=== PATIENT | female | born 1945 | race Caucasian/White ===

== ENCOUNTER → 2016-07-26 | Outpatient (CLI) | payer MEDICARE ==
[~2016-07-26] MED LIST: AMOXICILLIN500 MG PO; ANTIVERT/2525 M1 PO; ASPIRIN81 M1 PO; AUGMENTIN 875 M1 TAB PO; AUGMENTIN 875875 MG PO; BUSPAR10 MG PO; CALCIUM 600600 M2 PO; CELEBREX200 MG PO; CEREFOLIN PO; CLINDAMYCIN150 MG PO; CYCLOBENZAPRINE10 MG PO; DEMADEX5 MG PO; DIFLUCAN150 MG PO; DIOVAN80 M1 PO; DOK COLACE100 MG PO; FOSAMAX70 MG PO; HYDROCODONE BIT1 T11 PO; LASIX20 MG PO; LIDODERM 5% PATC1 EA T; MECLIZINE HCL25 M2 PO; MOTRIN800 MG PO; MULTIVITAMIN1 CTB PO; NEURONTIN100 MG PO; NEURONTIN300 MG PO; PERCOCET 325 MG1 TA2 PO; PERCOCET 325 MG1 TA3 PO; POTASSIUM CHLO10 ME5 PO; PROAIR HFA0.09 MG/AC; PROTONIX40 MG PO; SYNTHROID,LEVO50 MCG PO; ULTRAM50 MG PO; VIBRAMYCIN100 MG PO; ZANAFLEX4 MG PO; ZETIA10 MG PO
[2016-07-26 11:47] LABS: BASO # 0.1 10*3/uL (0.0-0.1); BASO % 0.6 % (0.0-1.0); EOS # 0.2 10*3/uL (0.0-0.4); EOS % 2.4 % (1.0-4.0); HEMATOCRIT 37.5 % (37.0-47.0); HEMOGLOBIN 11.9 g/dl (12.0-16.0); IG # 0.1 10*3/uL (0.0-0.1); LYMPH # 2.1 10*3/uL (1.3-4.4); LYMPH % 20.5 % (27.0-41.0); MEAN CELL VOLUME 88.9 fl (81.0-99.0); MEAN CORPUSCULAR HGB 28.2 pg (27.0-31.0); MEAN CORPUSCULAR HGB CONC 31.7 g/dl (33.0-37.0); MEAN PLATELET VOLUME 9.4 fl (9.6-12.3); MONO # 0.8 10*3/uL (0.1-1.0); NEUT # 6.8 10*3/uL (2.3-7.9); NEUT % 67.2 % (47.0-73.0); PLATELET COUNT AUTOMATED 343 10*3/uL (130-400); RED BLOOD COUNT 4.22 10*6/uL (4.10-5.10); RED CELL DISTRI WIDTH 15.4 % (0-14.5); WHITE BLOOD COUNT 10.1 10*3/uL (4.8-10.8)
[2016-07-26 12:03] LABS: HEMOGLOBIN A1c 6.7 % (4.8-5.6)
[2016-07-26 12:15] LABS: BILIRUBIN, TOTAL 0.6 mg/dl (0.2-1.0); BUN 18 mg/dl (7-24); CARBON DIOXIDE 31 mmol/L (21-32); CHLORIDE 103 mmol/L (98-107); CHOLESTEROL 189 mg/dL (<200); EST GLOM FILT AFRICAN AMERICAN > 60 ml/min; GLUCOSE 112 mg/dL (65-99); POTASSIUM 4.1 mmol/L (3.5-5.1); SGOT/AST 18 IU/L (3-35); SGPT/ALT 18 U/L (12-78); SODIUM 139 mmol/L (136-145); TOTAL PROTEIN 7.6 gm/dL (6.4-8.2); TRIGLYCERIDES 95 mg/dl (<150); URIC ACID 8.5 mg/dL (2.6-6.0); VLDL CHOLESTEROL 19 mg/dL (6-40)
[2016-07-26 12:24] LABS: ALKALINE PHOSPHATASE 93 U/L (45-117); HDL CHOLESTEROL 59 mg/dl (40-60); LDL CHOLESTEROL 111 mg/dL (9-159)
== END | disposition home or self-care (01) ==
LOC: LAB 11:04
PROVIDERS: Family Medicine
DX: E78.5 Hyperlipidemia, unspecified (principal); S20.01XA Contusion of right breast, initial encounter; I10 Essential (primary) hypertension; E66.9 Obesity, unspecified; Z79.899 Other long term (current) drug therapy; X58.XXXA Exposure to other specified factors, initial encounter; Y93.89 Activity, other specified; Y92.89 Other specified places as the place of occurrence of the external cause; Y99.8 Other external cause status

== ENCOUNTER → 2016-11-29 | Outpatient (CLI) | payer MEDICARE ==
[2016-11-29 10:50] LABS: BASO # 0.1 10*3/uL (0.0-0.1); BASO % 0.6 % (0.0-1.0); EOS # 0.2 10*3/uL (0.0-0.4); EOS % 2.5 % (1.0-4.0); HEMATOCRIT 41.8 % (37.0-47.0); HEMOGLOBIN 13.3 g/dl (12.0-16.0); LYMPH % 24.8 % (27.0-41.0); MEAN CELL VOLUME 87.4 fl (81.0-99.0); MEAN CORPUSCULAR HGB 27.8 pg (27.0-31.0); MEAN CORPUSCULAR HGB CONC 31.8 g/dl (33.0-37.0); MEAN PLATELET VOLUME 9.4 fl (9.6-12.3); MONO # 0.7 10*3/uL (0.1-1.0); NEUT # 5.2 10*3/uL (2.3-7.9); NEUT % 63.2 % (47.0-73.0); PLATELET COUNT AUTOMATED 302 10*3/uL (130-400); RED BLOOD COUNT 4.78 10*6/uL (4.10-5.10); RED CELL DISTRI WIDTH 15.2 % (0-14.5); WHITE BLOOD COUNT 8.2 10*3/uL (4.8-10.8)
[2016-11-29 11:32] LABS: ALBUMIN 3.1 gm/dl (3.1-4.5); CREATININE 1.1 mg/dL (0.55-1.02); POTASSIUM 4.1 mmol/L (3.5-5.1); URIC ACID 7.6 mg/dL (2.6-6.0)
[2016-11-29 11:43] LABS: THYROID STIM HORMONE (HS) 6.97 uIU/ml (0.358-4.75); TOTAL PROTEIN 7.5 gm/dL (6.4-8.2)
== END | disposition home or self-care (01) ==
LOC: LAB 10:26
PROVIDERS: Registered Nurse Flight
DX: N18.3 Chronic kidney disease, stage 3 (moderate) (principal); R73.09 Other abnormal glucose; R94.6 Abnormal results of thyroid function studies; R79.89 Other specified abnormal findings of blood chemistry

== ENCOUNTER → 2017-05-26 | Outpatient (CLI) | payer MEDICARE ==
[2017-05-26 10:15] LABS: HEMATOCRIT 42.4 % (37.0-47.0); HEMOGLOBIN 13.6 g/dl (12.0-16.0); MEAN CELL VOLUME 89.1 fl (81.0-99.0); MEAN CORPUSCULAR HGB 28.6 pg (27.0-31.0); MEAN CORPUSCULAR HGB CONC 32.1 g/dl (33.0-37.0); MEAN PLATELET VOLUME 9.7 fl (9.6-12.3); RED BLOOD COUNT 4.76 10*6/uL (4.10-5.10); RED CELL DISTRI WIDTH 14.6 % (0-14.5); WHITE BLOOD COUNT 8.9 10*3/uL (4.8-10.8)
[2017-05-26 10:29] LABS: ALBUMIN 3.2 gm/dl (3.1-4.5); CREATININE 1.1 mg/dL (0.55-1.02); POTASSIUM 4.1 mmol/L (3.5-5.1); TOTAL PROTEIN 7.7 gm/dL (6.4-8.2)
[2017-05-26 10:36] LABS: THYROID STIM HORMONE (HS) 3.59 uIU/ml (0.358-4.75)
== END | disposition home or self-care (01) ==
LOC: LAB 09:39
PROVIDERS: Registered Nurse Flight
DX: E78.5 Hyperlipidemia, unspecified (principal); E03.9 Hypothyroidism, unspecified; N18.3 Chronic kidney disease, stage 3 (moderate); R73.9 Hyperglycemia, unspecified

== ENCOUNTER → 2017-06-04 | Outpatient (CLI) | payer MEDICARE | END | disposition home or self-care (01) | LOC: RAD 12:56 | DX: M47.896 Other spondylosis, lumbar region (principal); M75.91 Shoulder lesion, unspecified, right shoulder ==

== ENCOUNTER 2017-12-20 16:30 | Emergency (ER) | payer MEDICARE ==
[~2017-12-20] VITALS: Ht 165.1 cm; Wt 127.0 kg
== END 2017-12-20 17:40 | disposition home or self-care (01) ==
LOC: ED 16:30
DX: S20.211A Contusion of right front wall of thorax, initial encounter (principal); K21.9 Gastro-esophageal reflux disease without esophagitis; E03.9 Hypothyroidism, unspecified; M81.0 Age-related osteoporosis without current pathological fracture; I10 Essential (primary) hypertension; J45.909 Unspecified asthma, uncomplicated; E66.9 Obesity, unspecified; Z88.8 Allergy status to other drugs, medicaments and biological substances; Z88.1 Allergy status to other antibiotic agents; Z88.2 Allergy status to sulfonamides; Z79.82 Long term (current) use of aspirin; Z79.899 Other long term (current) drug therapy; Z90.710 Acquired absence of both cervix and uterus; W10.9XXA Fall (on) (from) unspecified stairs and steps, initial encounter; Y93.89 Activity, other specified; Y92.89 Other specified places as the place of occurrence of the external cause; Y99.8 Other external cause status

== ENCOUNTER 2018-01-07 14:25 | Emergency (ER) | payer MEDICARE ==
[~2018-01-07] VITALS: Ht 157.4 cm; Wt 127.0 kg
== END 2018-01-07 16:49 | disposition home or self-care (01) ==
LOC: ED 14:25
DX: S30.0XXA Contusion of lower back and pelvis, initial encounter (principal); S80.01XA Contusion of right knee, initial encounter; Z90.710 Acquired absence of both cervix and uterus; Z79.899 Other long term (current) drug therapy; Z79.82 Long term (current) use of aspirin; Z79.1 Long term (current) use of non-steroidal anti-inflammatories (NSAID); Z88.2 Allergy status to sulfonamides; Z88.1 Allergy status to other antibiotic agents; Z88.8 Allergy status to other drugs, medicaments and biological substances; X58.XXXA Exposure to other specified factors, initial encounter; Y93.89 Activity, other specified; Y92.59 Other trade areas as the place of occurrence of the external cause; Y99.8 Other external cause status

== ENCOUNTER → 2018-04-01 | Outpatient (CLI) | payer MEDICARE ==
[2018-04-01 12:53] LABS: HEMOGLOBIN 13.5 g/dl (12.0-16.0); MEAN CELL VOLUME 92.7 fl (81.0-99.0); MEAN CORPUSCULAR HGB 29.1 pg (27.0-31.0); MEAN CORPUSCULAR HGB CONC 31.4 g/dl (33.0-37.0); MEAN PLATELET VOLUME 9.4 fl (9.6-12.3); RED BLOOD COUNT 4.64 10*6/uL (4.10-5.10); RED CELL DISTRI WIDTH 14.6 % (0-14.5); WHITE BLOOD COUNT 5.8 10*3/uL (4.8-10.8)
[2018-04-01 13:11] LABS: CREATININE 1.14 mg/dL (0.55-1.02); POTASSIUM 4.2 mmol/L (3.5-5.1); TOTAL PROTEIN 7.7 gm/dL (6.4-8.2)
[2018-04-01 13:18] LABS: THYROID STIM HORMONE (HS) 3.86 uIU/ml (0.358-4.75)
== END | disposition home or self-care (01) ==
LOC: LAB 12:12
PROVIDERS: Registered Nurse Flight
DX: E11.22 Type 2 diabetes mellitus with diabetic chronic kidney disease (principal); E11.65 Type 2 diabetes mellitus with hyperglycemia; N18.3 Chronic kidney disease, stage 3 (moderate); E78.49 Other hyperlipidemia; E03.9 Hypothyroidism, unspecified; E55.9 Vitamin D deficiency, unspecified

== ENCOUNTER → 2018-05-28 | Outpatient (CLI) | payer MEDICARE ==
[2018-05-28 12:20] LABS: BASO # 0.1 10*3/uL (0.0-0.1); BASO % 0.7 % (0.0-1.0); EOS # 0.2 10*3/uL (0.0-0.4); EOS % 2.3 % (1.0-4.0); HEMATOCRIT 42.7 % (37.0-47.0); HEMOGLOBIN 13.2 g/dl (12.0-16.0); LYMPH # 2.1 10*3/uL (1.3-4.4); LYMPH % 24.8 % (27.0-41.0); MEAN CORPUSCULAR HGB 28.1 pg (27.0-31.0); MEAN CORPUSCULAR HGB CONC 30.9 g/dl (33.0-37.0); MEAN PLATELET VOLUME 9.8 fl (9.6-12.3); MONO # 0.7 10*3/uL (0.1-1.0); NEUT # 5.2 10*3/uL (2.3-7.9); NEUT % 63.4 % (47.0-73.0); PLATELET COUNT AUTOMATED 353 10*3/uL (130-400); RED BLOOD COUNT 4.69 10*6/uL (4.10-5.10); RED CELL DISTRI WIDTH 14.1 % (0-14.5); WHITE BLOOD COUNT 8.3 10*3/uL (4.8-10.8)
[2018-05-28 13:06] LABS: ALBUMIN 3.3 gm/dl (3.1-4.5); CREATININE 1.38 mg/dL (0.55-1.02); POTASSIUM 4.4 mmol/L (3.5-5.1); TOTAL PROTEIN 7.8 gm/dL (6.4-8.2)
[2018-05-28 13:16] LABS: THYROID STIM HORMONE (HS) 2.72 uIU/ml (0.358-4.75)
== END | disposition home or self-care (01) ==
LOC: LAB 11:53
PROVIDERS: Registered Nurse Flight
DX: E78.5 Hyperlipidemia, unspecified (principal); N18.3 Chronic kidney disease, stage 3 (moderate); E03.9 Hypothyroidism, unspecified; E55.9 Vitamin D deficiency, unspecified

== ENCOUNTER → 2018-11-10 | Outpatient (CLI) | payer MEDICARE ==
[2018-11-10 10:27] LABS: ALBUMIN 3.3 gm/dl (3.1-4.5); CREATININE 1.51 mg/dL (0.55-1.02); POTASSIUM 4.1 mmol/L (3.5-5.1); TOTAL PROTEIN 7.5 gm/dL (6.4-8.2)
== END | disposition home or self-care (01) ==
LOC: LAB 09:26 → CT 10:00
PROVIDERS: Registered Nurse Flight
DX: R10.13 Epigastric pain (principal); E11.65 Type 2 diabetes mellitus with hyperglycemia; E55.9 Vitamin D deficiency, unspecified; E78.5 Hyperlipidemia, unspecified; I25.10 Atherosclerotic heart disease of native coronary artery without angina pectoris; K76.0 Fatty (change of) liver, not elsewhere classified; K42.9 Umbilical hernia without obstruction or gangrene

== ENCOUNTER → 2018-12-03 | Outpatient (CLI) | payer MEDICARE | END | disposition home or self-care (01) | LOC: US 12:45 | DX: N18.3 Chronic kidney disease, stage 3 (moderate) (principal) ==

== ENCOUNTER → 2018-12-31 | Outpatient (CLI) | payer MEDICARE | END | disposition home or self-care (01) | LOC: RAD 14:22 | DX: M25.551 Pain in right hip (principal); R07.81 Pleurodynia ==

== ENCOUNTER → 2019-03-29 | Outpatient (CLI) | payer MEDICARE ==
[2019-03-29 13:16] LABS: HEMATOCRIT 42.3 % (37.0-47.0); HEMOGLOBIN 13.1 g/dl (12.0-16.0); MEAN CELL VOLUME 92.2 fl (81.0-99.0); MEAN CORPUSCULAR HGB 28.5 pg (27.0-31.0); MEAN PLATELET VOLUME 9.9 fl (9.6-12.3); RED BLOOD COUNT 4.59 10*6/uL (4.10-5.10); RED CELL DISTRI WIDTH 14.2 % (0-14.5)
[2019-03-29 13:50] LABS: ALBUMIN 3.4 gm/dl (3.1-4.5); CREATININE 1.28 mg/dL (0.55-1.02); POTASSIUM 4.6 mmol/L (3.5-5.1); TOTAL PROTEIN 8.2 gm/dL (6.4-8.2)
[2019-03-29 13:57] LABS: THYROID STIM HORMONE (HS) 3.98 uIU/ml (0.358-4.75)
== END | disposition home or self-care (01) ==
LOC: LAB 12:34
PROVIDERS: Registered Nurse Flight
DX: E11.22 Type 2 diabetes mellitus with diabetic chronic kidney disease (principal); N18.3 Chronic kidney disease, stage 3 (moderate); E11.65 Type 2 diabetes mellitus with hyperglycemia; E78.5 Hyperlipidemia, unspecified; E03.9 Hypothyroidism, unspecified

== ENCOUNTER 2020-03-04 14:51 | Emergency (ER) | payer MEDICARE ==
[~2020-03-04] VITALS: Ht 157.4 cm; Wt 127.0 kg
== END 2020-03-04 16:23 | disposition home or self-care (01) ==
LOC: ED 14:51
DX: R05 Cough (principal); Z20.828 Contact with and (suspected) exposure to other viral communicable diseases; R06.02 Shortness of breath; K21.9 Gastro-esophageal reflux disease without esophagitis; E03.9 Hypothyroidism, unspecified; M19.90 Unspecified osteoarthritis, unspecified site; Z88.2 Allergy status to sulfonamides; Z88.1 Allergy status to other antibiotic agents; Z88.8 Allergy status to other drugs, medicaments and biological substances; Z79.899 Other long term (current) drug therapy; Z79.82 Long term (current) use of aspirin

== ENCOUNTER 2020-03-08 16:35 | Inpatient (IN) | payer MEDICARE ==
[~2020-03-08] VITALS: Ht 157.4 cm; Wt 125.6 kg
[2020-03-08 09:30] VITALS: BP 98/57
[2020-03-08 16:40] VITALS: BP 137/79
[2020-03-08 16:53] LABS: BASO % 0.2 % (0.0-1.0); EOS % 0.1 % (1.0-4.0); HEMATOCRIT 41.8 % (37.0-47.0); LYMPH # 1.1 10*3/uL (1.3-4.4); LYMPH % 11.7 % (27.0-41.0); MEAN CELL VOLUME 86.7 fl (81.0-99.0); MEAN CORPUSCULAR HGB 27.6 pg (27.0-31.0); MEAN CORPUSCULAR HGB CONC 31.8 g/dl (33.0-37.0); MEAN PLATELET VOLUME 9.3 fl (9.6-12.3); MONO # 0.6 10*3/uL (0.1-1.0); MONO % 6.7 % (3.0-9.0); NEUT # 7.8 10*3/uL (2.3-7.9); NEUT % 80.6 % (47.0-73.0); PLATELET COUNT AUTOMATED 312 10*3/uL (130-400); RED BLOOD COUNT 4.82 10*6/uL (4.10-5.10); RED CELL DISTRI WIDTH 14.9 % (0-14.5); WHITE BLOOD COUNT 9.6 10*3/uL (4.8-10.8)
[2020-03-08 17:09] LABS: ALBUMIN 2.5 gm/dl (3.1-4.5); ALKALINE PHOSPHATASE 69 U/L (45-117); BUN 18 mg/dl (7-24); CHLORIDE 108 mmol/L (98-107); CREATININE 1.27 mg/dL (0.55-1.02); LIPASE 44 U/L (73-393); POTASSIUM 3.7 mmol/L (3.5-5.1); SGOT/AST 60 IU/L (3-35); SGPT/ALT 32 U/L (12-78); SODIUM 141 mmol/L (136-145); TOTAL PROTEIN 7.1 gm/dL (6.4-8.2)
[2020-03-08 17:12] LABS: TROPONIN I < 0.015 ng/ml (<0.045)
[2020-03-08 17:23] LABS: ACT PARTIAL THROMBO TIME 29.1 SECONDS (20.0-32.1); INTERNATIONAL NORM RATIO 1.1 (2.0-3.5)
[2020-03-08 17:30] VITALS: BP 127/65
[2020-03-08 19:15] LABS: ABG BASE EXCESS -1.7 mmol/L (-2.0-2.0); ARTERIAL BLOOD GAS PH 7.444 (7.35-7.45)
[2020-03-08 22:30] VITALS: BP 159/84
[2020-03-09] VITALS (10 sets, daily range): BP systolic 85–163; BP diastolic 57–84
[2020-03-09 01:38] LABS: ARTERIAL BLOOD GAS PH 7.289 (7.35-7.45)
[2020-03-09 01:41] LABS: ABG BASE EXCESS -7.9 mmol/L (-2.0-2.0)
[2020-03-09 03:06] LABS: BILIRUBIN 2+ (Negative); BLOOD 1+ (Negative); CLARITY Cloudy (Clear); COLOR Dark Yellow (Yellow); GLUCOSE Negative (Negative); KETONE 1+ (Negative); LEUKO ESTERASE Trace (Negative); NITRITE Negative (Negative); SPECIFIC GRAVITY >= 1.030 (1.001-1.030)
[2020-03-09 03:30] LABS: BACTERIA 1+
[2020-03-09 06:11] LABS: HEMATOCRIT 42.6 % (37.0-47.0); MEAN CORPUSCULAR HGB 27.8 pg (27.0-31.0); MEAN PLATELET VOLUME 10.3 fl (9.6-12.3); PLATELET COUNT AUTOMATED 375 10*3/uL (130-400); RED BLOOD COUNT 4.74 10*6/uL (4.10-5.10); RED CELL DISTRI WIDTH 15.2 % (0-14.5); WHITE BLOOD COUNT 15.6 10*3/uL (4.8-10.8)
[2020-03-09 06:12] LABS: ALBUMIN 2.4 gm/dl (3.1-4.5); CREATININE 1.8 mg/dL (0.55-1.02); FREE T4 1.38 ng/dl (0.76-1.46); POTASSIUM 4.2 mmol/L (3.5-5.1); TOTAL PROTEIN 7.4 gm/dL (6.4-8.2)
[2020-03-09 06:17] LABS: THYROID STIM HORMONE (HS) 0.848 uIU/ml (0.358-4.75)
[2020-03-09 06:23] LABS: MEAN CELL VOLUME 89.9 fl (81.0-99.0)
[2020-03-09 06:46] LABS: TOTAL CELLS COUNTED 100 #CELLS
[2020-03-09 06:47] LABS: PLATELET SUFFICIENCY NORMAL (NORMAL)
[2020-03-09 06:59] LABS: ACT PARTIAL THROMBO TIME 27.5 SECONDS (20.0-32.1); INTERNATIONAL NORM RATIO 1.1 (2.0-3.5)
[2020-03-09 09:01] LABS: ABG BASE EXCESS -11.4 mmol/L (-2.0-2.0)
[2020-03-09 09:02] LABS: ARTERIAL BLOOD GAS PH 7.158 (7.35-7.45)
[2020-03-09 09:18] LABS: FERRITIN 594.4 ng/mL (10.0-291.0); VITAMIN D, 25-HYDROXY 42.5 ng/mL (30-100)
[2020-03-09] MEDS ORDERED: BENZONATATE100 M1 PO (09:18)
[2020-03-09] MEDS ORDERED: DOXYCYCLINE HY100 M3 PO (09:19)
[2020-03-09] MEDS ORDERED: ATENOLOL25 MG PO (09:27)
[2020-03-09] MEDS ORDERED: GABAPENTIN400 MG PO (09:28)
[2020-03-09] MEDS ORDERED: MONTELUKAST SOD10 MG PO (09:28)
[2020-03-09] MEDS ORDERED: CETIRIZINE HYDR10 MG PO (09:29)
[2020-03-09] MEDS ORDERED: ALLOPURINOL100 MG PO (09:29)
[2020-03-09] MEDS ORDERED: GLIMEPIRIDE4 M1 PO (09:31)
[2020-03-09] MEDS ORDERED: DULOXETINE HCL30 MG PO (09:32)
[2020-03-09] MEDS ORDERED: TRULICITY1.5 MG/0.5 SC (09:33)
[2020-03-09 14:03] LABS: ARTERIAL BLOOD GAS PH 7.217 (7.35-7.45)
[2020-03-09 14:06] LABS: ABG BASE EXCESS -5.4 mmol/L (-2.0-2.0)
[2020-03-09 21:36] LABS: ABG BASE EXCESS -2.8 mmol/L (-2.0-2.0); ARTERIAL BLOOD GAS PH 7.259 (7.35-7.45)
[2020-03-10] VITALS (12 sets, daily range): BP systolic 86–156; BP diastolic 58–78
[2020-03-10 05:45] LABS: ALBUMIN 2.2 gm/dl (3.1-4.5); CREATININE 1.83 mg/dL (0.55-1.02)
[2020-03-10 06:15] LABS: HEMATOCRIT 41.6 % (37.0-47.0); MEAN CELL VOLUME 88.7 fl (81.0-99.0); MEAN CORPUSCULAR HGB 27.7 pg (27.0-31.0); MEAN CORPUSCULAR HGB CONC 31.3 g/dl (33.0-37.0); MEAN PLATELET VOLUME 10.4 fl (9.6-12.3); PLATELET COUNT AUTOMATED 302 10*3/uL (130-400); RED BLOOD COUNT 4.69 10*6/uL (4.10-5.10); RED CELL DISTRI WIDTH 14.8 % (0-14.5); WHITE BLOOD COUNT 16.6 10*3/uL (4.8-10.8)
[2020-03-10 06:42] LABS: PLATELET SUFFICIENCY NORMAL (NORMAL); TOTAL CELLS COUNTED 100 #CELLS
[2020-03-10 09:03] LABS: ABG BASE EXCESS -2.8 mmol/L (-2.0-2.0); ARTERIAL BLOOD GAS PH 7.301 (7.35-7.45)
[2020-03-10 16:59] LABS: ABG BASE EXCESS -5.3 mmol/L (-2.0-2.0); ARTERIAL BLOOD GAS PH 7.217 (7.35-7.45)
[2020-03-10 21:16] LABS: ABG BASE EXCESS -5.8 mmol/L (-2.0-2.0); ARTERIAL BLOOD GAS PH 7.166 (7.35-7.45)
[2020-03-10 23:42] LABS: ABG BASE EXCESS -4.2 mmol/L (-2.0-2.0); ARTERIAL BLOOD GAS PH 7.251 (7.35-7.45)
[2020-03-11] VITALS (12 sets, daily range): BP systolic 91–156; BP diastolic 50–93
[2020-03-11 06:08] LABS: MEAN CORPUSCULAR HGB 27.5 pg (27.0-31.0); MEAN CORPUSCULAR HGB CONC 30.5 g/dl (33.0-37.0); MEAN PLATELET VOLUME 10.6 fl (9.6-12.3); NUCLEATED RED BLOOD CELL 0.2 % (0.0-0.0); PLATELET COUNT AUTOMATED 310 10*3/uL (130-400); RED BLOOD COUNT 4.11 10*6/uL (4.10-5.10); RED CELL DISTRI WIDTH 15.1 % (0-14.5); WHITE BLOOD COUNT 13.1 10*3/uL (4.8-10.8)
[2020-03-11 06:30] LABS: ALBUMIN 1.8 gm/dl (3.1-4.5); CREATININE 1.86 mg/dL (0.55-1.02); TOTAL PROTEIN 5.7 gm/dL (6.4-8.2)
[2020-03-11 06:32] LABS: POTASSIUM 4.2 mmol/L (3.5-5.1)
[2020-03-11 07:14] LABS: ATYPICAL LYMPHS 1 % (0-0); PLATELET SUFFICIENCY NORMAL (NORMAL); TOTAL CELLS COUNTED 100 #CELLS
[2020-03-11 07:15] LABS: BURR CELLS MODERATE
[2020-03-11 07:46] LABS: ABG BASE EXCESS -2.2 mmol/L (-2.0-2.0); ARTERIAL BLOOD GAS PH 7.328 (7.35-7.45)
[2020-03-11 13:13] LABS: ABG BASE EXCESS -2.2 mmol/L (-2.0-2.0); ARTERIAL BLOOD GAS PH 7.401 (7.35-7.45)
[2020-03-11 20:15] LABS: ABG BASE EXCESS -0.5 mmol/L (-2.0-2.0); ARTERIAL BLOOD GAS PH 7.402 (7.35-7.45)
[2020-03-12] VITALS (12 sets, daily range): BP systolic 94–164; BP diastolic 53–83
[2020-03-12 04:29] LABS: HEMATOCRIT 32.8 % (37.0-47.0); MEAN CELL VOLUME 87.9 fl (81.0-99.0); MEAN CORPUSCULAR HGB 28.4 pg (27.0-31.0); MEAN CORPUSCULAR HGB CONC 32.3 g/dl (33.0-37.0); MEAN PLATELET VOLUME 10.2 fl (9.6-12.3); PLATELET COUNT AUTOMATED 302 10*3/uL (130-400); RED BLOOD COUNT 3.73 10*6/uL (4.10-5.10); RED CELL DISTRI WIDTH 15.5 % (0-14.5); WHITE BLOOD COUNT 10.5 10*3/uL (4.8-10.8)
[2020-03-12 04:53] LABS: TOTAL CELLS COUNTED 100 #CELLS
[2020-03-12 04:54] LABS: PLATELET SUFFICIENCY NORMAL (NORMAL)
[2020-03-12 04:56] LABS: CREATININE 1.76 mg/dL (0.55-1.02); POTASSIUM 3.8 mmol/L (3.5-5.1); TOTAL PROTEIN 5.8 gm/dL (6.4-8.2)
[2020-03-12] MEDS ORDERED: LEVOTHYROXINE50 MCG PO (07:07)
[2020-03-12 07:31] LABS: ABG BASE EXCESS -0.1 mmol/L (-2.0-2.0); ARTERIAL BLOOD GAS PH 7.367 (7.35-7.45)
[2020-03-12 15:12] LABS: ABG BASE EXCESS 1.8 mmol/L (-2.0-2.0); ARTERIAL BLOOD GAS PH 7.432 (7.35-7.45)
[2020-03-13] VITALS (12 sets, daily range): BP systolic 121–181; BP diastolic 70–95
[2020-03-13 06:29] LABS: HEMATOCRIT 34.7 % (37.0-47.0); MEAN CELL VOLUME 86.3 fl (81.0-99.0); MEAN CORPUSCULAR HGB 27.6 pg (27.0-31.0); MEAN PLATELET VOLUME 10.1 fl (9.6-12.3); NUCLEATED RED BLOOD CELL 0.2 % (0.0-0.0); PLATELET COUNT AUTOMATED 366 10*3/uL (130-400); RED BLOOD COUNT 4.02 10*6/uL (4.10-5.10); RED CELL DISTRI WIDTH 15.5 % (0-14.5); WHITE BLOOD COUNT 13.2 10*3/uL (4.8-10.8)
[2020-03-13 06:49] LABS: ALBUMIN 2.4 gm/dl (3.1-4.5); CREATININE 1.34 mg/dL (0.55-1.02); POTASSIUM 3.6 mmol/L (3.5-5.1); TOTAL PROTEIN 6.2 gm/dL (6.4-8.2)
[2020-03-13 07:04] LABS: PLATELET SUFFICIENCY NORMAL (NORMAL); SCHISTOCYTES FEW; TOTAL CELLS COUNTED 100 #CELLS
[2020-03-13 07:31] LABS: ACT PARTIAL THROMBO TIME 28.6 SECONDS (20.0-32.1)
[2020-03-13 08:03] LABS: ABG BASE EXCESS 5.7 mmol/L (-2.0-2.0); ARTERIAL BLOOD GAS PH 7.497 (7.35-7.45)
[2020-03-13 17:04] LABS: ABG BASE EXCESS 4.5 mmol/L (-2.0-2.0); ARTERIAL BLOOD GAS PH 7.446 (7.35-7.45)
[2020-03-14] VITALS (11 sets, daily range): BP systolic 101–146; BP diastolic 60–85
[2020-03-14 06:10] LABS: MEAN CORPUSCULAR HGB 27.3 pg (27.0-31.0); MEAN CORPUSCULAR HGB CONC 31.4 g/dl (33.0-37.0); MEAN PLATELET VOLUME 10.4 fl (9.6-12.3); NUCLEATED RED BLOOD CELL 0.2 % (0.0-0.0); PLATELET COUNT AUTOMATED 388 10*3/uL (130-400); RED BLOOD COUNT 4.83 10*6/uL (4.10-5.10); RED CELL DISTRI WIDTH 15.8 % (0-14.5); WHITE BLOOD COUNT 14.3 10*3/uL (4.8-10.8)
[2020-03-14 06:14] LABS: ALBUMIN 2.7 gm/dl (3.1-4.5); POTASSIUM 4.5 mmol/L (3.5-5.1)
[2020-03-14 06:21] LABS: CREATININE 1.28 mg/dL (0.55-1.02); TOTAL PROTEIN 6.7 gm/dL (6.4-8.2)
[2020-03-14 06:36] LABS: ATYPICAL LYMPHS 1 % (0-0); TOTAL CELLS COUNTED 100 #CELLS
[2020-03-14 06:37] LABS: BURR CELLS FEW; PLATELET SUFFICIENCY NORMAL (NORMAL); POLYCHROMASIA SLIGHT
[2020-03-14 08:23] LABS: ABG BASE EXCESS 5.3 mmol/L (-2.0-2.0); ARTERIAL BLOOD GAS PH 7.482 (7.35-7.45)
[2020-03-14 12:08] LABS: ACID FAST SPEC PROCESSING Concentration (.)
[2020-03-14 14:16] LABS: ABG BASE EXCESS 5.3 mmol/L (-2.0-2.0); ARTERIAL BLOOD GAS PH 7.488 (7.35-7.45)
[2020-03-14 17:40] LABS: ABG BASE EXCESS 6.2 mmol/L (-2.0-2.0); ARTERIAL BLOOD GAS PH 7.486 (7.35-7.45)
[2020-03-15] VITALS (12 sets, daily range): BP systolic 100–131; BP diastolic 53–79
[2020-03-15 06:06] LABS: ALBUMIN 2.8 gm/dl (3.1-4.5); CREATININE 1.51 mg/dL (0.55-1.02); POTASSIUM 4.3 mmol/L (3.5-5.1); TOTAL PROTEIN 6.4 gm/dL (6.4-8.2)
[2020-03-15 06:14] LABS: HEMATOCRIT 35.7 % (37.0-47.0); MEAN CELL VOLUME 88.4 fl (81.0-99.0); MEAN CORPUSCULAR HGB CONC 31.7 g/dl (33.0-37.0); MEAN PLATELET VOLUME 10.7 fl (9.6-12.3); NUCLEATED RED BLOOD CELL 0.1 % (0.0-0.0); PLATELET COUNT AUTOMATED 433 10*3/uL (130-400); RED BLOOD COUNT 4.04 10*6/uL (4.10-5.10); RED CELL DISTRI WIDTH 16.2 % (0-14.5); WHITE BLOOD COUNT 17.6 10*3/uL (4.8-10.8)
[2020-03-15 06:30] LABS: ACT PARTIAL THROMBO TIME 40.9 SECONDS (20.0-32.1)
[2020-03-15 07:39] LABS: PLATELET SUFFICIENCY HIGH (NORMAL); TOTAL CELLS COUNTED 100 #CELLS
[2020-03-15 07:50] LABS: ABG BASE EXCESS 5.6 mmol/L (-2.0-2.0); ARTERIAL BLOOD GAS PH 7.494 (7.35-7.45)
[2020-03-15 14:16] LABS: ABG BASE EXCESS 6.8 mmol/L (-2.0-2.0); ARTERIAL BLOOD GAS PH 7.498 (7.35-7.45)
[2020-03-15 15:06] LABS: BILIRUBIN Negative (Negative); BLOOD 3+ (Negative); CLARITY Turbid (Clear); COLOR Orange (Yellow); GLUCOSE Trace (Negative); KETONE Negative (Negative); LEUKO ESTERASE 3+ (Negative); NITRITE Positive (Negative); SPECIFIC GRAVITY >= 1.030 (1.001-1.030)
[2020-03-15 15:12] LABS: PH >= 9.0 (4.5-8.0)
[2020-03-15 15:21] LABS: BACTERIA 3+; EPITHELIAL CELLS 21-30; RBC TNTC rbc/hpf (0-2); TRIP PHOS CRYSTALS 3+
[2020-03-16] VITALS (12 sets, daily range): BP systolic 102–128; BP diastolic 52–78
[2020-03-16 06:15] LABS: HEMATOCRIT 36.5 % (37.0-47.0); MEAN CORPUSCULAR HGB 28.2 pg (27.0-31.0); MEAN PLATELET VOLUME 11.2 fl (9.6-12.3); NUCLEATED RED BLOOD CELL 0.1 % (0.0-0.0); PLATELET COUNT AUTOMATED 416 10*3/uL (130-400); RED BLOOD COUNT 4.01 10*6/uL (4.10-5.10); RED CELL DISTRI WIDTH 16.7 % (0-14.5); WHITE BLOOD COUNT 18.7 10*3/uL (4.8-10.8)
[2020-03-16 06:40] LABS: ALBUMIN 2.7 gm/dl (3.1-4.5); POTASSIUM 4.4 mmol/L (3.5-5.1)
[2020-03-16 06:42] LABS: CREATININE 1.49 mg/dL (0.55-1.02); TOTAL PROTEIN 6.6 gm/dL (6.4-8.2)
[2020-03-16 07:23] LABS: PLATELET SUFFICIENCY HIGH (NORMAL); TOTAL CELLS COUNTED 100 #CELLS
[2020-03-16 08:37] LABS: ABG BASE EXCESS 6.1 mmol/L (-2.0-2.0); ARTERIAL BLOOD GAS PH 7.481 (7.35-7.45)
[2020-03-16 16:01] LABS: ABG BASE EXCESS 3.7 mmol/L (-2.0-2.0); ARTERIAL BLOOD GAS PH 7.462 (7.35-7.45)
[2020-03-16 20:13] LABS: ABG BASE EXCESS 3.8 mmol/L (-2.0-2.0); ARTERIAL BLOOD GAS PH 7.474 (7.35-7.45)
[2020-03-17] VITALS (12 sets, daily range): BP systolic 99–138; BP diastolic 47–66
[2020-03-17 05:47] LABS: ALBUMIN 2.5 gm/dl (3.1-4.5); CREATININE 1.3 mg/dL (0.55-1.02); POTASSIUM 4.2 mmol/L (3.5-5.1); TOTAL PROTEIN 6.4 gm/dL (6.4-8.2)
[2020-03-17 06:11] LABS: HEMATOCRIT 35.1 % (37.0-47.0); MEAN CELL VOLUME 89.1 fl (81.0-99.0); MEAN CORPUSCULAR HGB 28.2 pg (27.0-31.0); MEAN CORPUSCULAR HGB CONC 31.6 g/dl (33.0-37.0); MEAN PLATELET VOLUME 11.1 fl (9.6-12.3); NUCLEATED RED BLOOD CELL 0.1 % (0.0-0.0); PLATELET COUNT AUTOMATED 372 10*3/uL (130-400); RED BLOOD COUNT 3.94 10*6/uL (4.10-5.10); RED CELL DISTRI WIDTH 16.4 % (0-14.5); WHITE BLOOD COUNT 19.7 10*3/uL (4.8-10.8)
[2020-03-17 06:45] LABS: ACT PARTIAL THROMBO TIME 32.2 SECONDS (20.0-32.1)
[2020-03-17 06:53] LABS: PLATELET SUFFICIENCY NORMAL (NORMAL); POLYCHROMASIA SLIGHT; TOTAL CELLS COUNTED 100 #CELLS
[2020-03-17 07:32] LABS: ABG BASE EXCESS 3.3 mmol/L (-2.0-2.0); ARTERIAL BLOOD GAS PH 7.472 (7.35-7.45)
[2020-03-17 19:59] LABS: ABG BASE EXCESS -0.1 mmol/L (-2.0-2.0); ARTERIAL BLOOD GAS PH 7.424 (7.35-7.45)
[2020-03-17 22:03] LABS: ABG BASE EXCESS 0.5 mmol/L (-2.0-2.0); ARTERIAL BLOOD GAS PH 7.459 (7.35-7.45)
[2020-03-18] VITALS (12 sets, daily range): BP systolic 102–164; BP diastolic 49–78
[2020-03-18 05:56] LABS: ALBUMIN 2.3 gm/dl (3.1-4.5); CREATININE 1.22 mg/dL (0.55-1.02); POTASSIUM 4.6 mmol/L (3.5-5.1); TOTAL PROTEIN 6.3 gm/dL (6.4-8.2)
[2020-03-18 06:08] LABS: HEMATOCRIT 34.3 % (37.0-47.0); MEAN CELL VOLUME 88.4 fl (81.0-99.0); MEAN CORPUSCULAR HGB 27.6 pg (27.0-31.0); MEAN CORPUSCULAR HGB CONC 31.2 g/dl (33.0-37.0); MEAN PLATELET VOLUME 11.3 fl (9.6-12.3); NUCLEATED RED BLOOD CELL 0.1 % (0.0-0.0); PLATELET COUNT AUTOMATED 362 10*3/uL (130-400); RED BLOOD COUNT 3.88 10*6/uL (4.10-5.10); RED CELL DISTRI WIDTH 16.3 % (0-14.5); WHITE BLOOD COUNT 21.3 10*3/uL (4.8-10.8)
[2020-03-18 06:42] LABS: PLATELET SUFFICIENCY NORMAL (NORMAL); POLYCHROMASIA SLIGHT; TOTAL CELLS COUNTED 100 #CELLS
[2020-03-18 08:11] LABS: ABG BASE EXCESS 0.3 mmol/L (-2.0-2.0); ARTERIAL BLOOD GAS PH 7.445 (7.35-7.45)
[2020-03-18 16:10] LABS: ABG BASE EXCESS -0.8 mmol/L (-2.0-2.0); ARTERIAL BLOOD GAS PH 7.459 (7.35-7.45)
[2020-03-18 19:47] LABS: ABG BASE EXCESS -1.1 mmol/L (-2.0-2.0); ARTERIAL BLOOD GAS PH 7.449 (7.35-7.45)
[2020-03-19] VITALS (12 sets, daily range): BP systolic 112–141; BP diastolic 58–70
[2020-03-19 05:46] LABS: ALBUMIN 2.2 gm/dl (3.1-4.5); ALKALINE PHOSPHATASE 72 U/L (45-117); BUN 44 mg/dl (7-24); CHLORIDE 110 mmol/L (98-107); CREATININE 0.99 mg/dL (0.55-1.02); POTASSIUM 4.4 mmol/L (3.5-5.1); SGOT/AST 16 IU/L (3-35); SGPT/ALT 19 U/L (12-78); SODIUM 140 mmol/L (136-145)
[2020-03-19 06:09] LABS: HEMATOCRIT 33.6 % (37.0-47.0); MEAN CELL VOLUME 88.2 fl (81.0-99.0); MEAN CORPUSCULAR HGB 27.6 pg (27.0-31.0); MEAN CORPUSCULAR HGB CONC 31.3 g/dl (33.0-37.0); NUCLEATED RED BLOOD CELL 0.1 % (0.0-0.0); PLATELET COUNT AUTOMATED 360 10*3/uL (130-400); RED BLOOD COUNT 3.81 10*6/uL (4.10-5.10); RED CELL DISTRI WIDTH 16.2 % (0-14.5); WHITE BLOOD COUNT 20.9 10*3/uL (4.8-10.8)
[2020-03-19 06:38] LABS: ACT PARTIAL THROMBO TIME 23.6 SECONDS (20.0-32.1)
[2020-03-19 07:09] LABS: PLATELET SUFFICIENCY NORMAL (NORMAL); POLYCHROMASIA SLIGHT; TOTAL CELLS COUNTED 100 #CELLS
[2020-03-19 08:07] LABS: ABG BASE EXCESS 0.1 mmol/L (-2.0-2.0); ARTERIAL BLOOD GAS PH 7.472 (7.35-7.45)
[2020-03-19 16:39] LABS: ARTERIAL BLOOD GAS PH 7.448 (7.35-7.45)
[2020-03-20] VITALS (12 sets, daily range): BP systolic 108–158; BP diastolic 26–92
[2020-03-20 04:47] LABS: HEMATOCRIT 33.3 % (37.0-47.0); MEAN CORPUSCULAR HGB 28.3 pg (27.0-31.0); MEAN CORPUSCULAR HGB CONC 31.8 g/dl (33.0-37.0); MEAN PLATELET VOLUME 10.4 fl (9.6-12.3); PLATELET COUNT AUTOMATED 342 10*3/uL (130-400); RED BLOOD COUNT 3.74 10*6/uL (4.10-5.10); RED CELL DISTRI WIDTH 16.3 % (0-14.5); WHITE BLOOD COUNT 16.4 10*3/uL (4.8-10.8)
[2020-03-20 05:10] LABS: ALBUMIN 2.1 gm/dl (3.1-4.5); ALKALINE PHOSPHATASE 62 U/L (45-117); BUN 36 mg/dl (7-24); CHLORIDE 111 mmol/L (98-107); CREATININE 0.93 mg/dL (0.55-1.02); SGOT/AST 20 IU/L (3-35); SGPT/ALT 24 U/L (12-78); SODIUM 139 mmol/L (136-145)
[2020-03-20 05:21] LABS: TOTAL CELLS COUNTED 100 #CELLS
[2020-03-20 05:26] LABS: PLATELET SUFFICIENCY NORMAL (NORMAL)
[2020-03-20 05:27] LABS: POLYCHROMASIA SLIGHT
[2020-03-20 07:55] LABS: ABG BASE EXCESS -2.5 mmol/L (-2.0-2.0); ARTERIAL BLOOD GAS PH 7.454 (7.35-7.45)
[2020-03-21] VITALS (12 sets, daily range): BP systolic 00–169; BP diastolic 00–75
[2020-03-21 05:59] LABS: HEMATOCRIT 33.4 % (37.0-47.0); MEAN CELL VOLUME 91.8 fl (81.0-99.0); MEAN CORPUSCULAR HGB 28.8 pg (27.0-31.0); MEAN CORPUSCULAR HGB CONC 31.4 g/dl (33.0-37.0); MEAN PLATELET VOLUME 10.6 fl (9.6-12.3); PLATELET COUNT AUTOMATED 321 10*3/uL (130-400); RED BLOOD COUNT 3.64 10*6/uL (4.10-5.10); RED CELL DISTRI WIDTH 16.2 % (0-14.5); WHITE BLOOD COUNT 15.7 10*3/uL (4.8-10.8)
[2020-03-21 06:29] LABS: BUN 32 mg/dl (7-24); CHLORIDE 109 mmol/L (98-107); CREATININE 0.76 mg/dL (0.55-1.02); POTASSIUM 4.5 mmol/L (3.5-5.1); SGOT/AST 21 IU/L (3-35); SGPT/ALT 25 U/L (12-78); SODIUM 136 mmol/L (136-145)
[2020-03-21 06:32] LABS: ALKALINE PHOSPHATASE 69 U/L (45-117); CPK 57 U/L (26-192); LDH 491 U/L (84-246)
[2020-03-21 06:44] LABS: PLATELET SUFFICIENCY NORMAL (NORMAL); TOTAL CELLS COUNTED 100 #CELLS
[2020-03-21 08:01] LABS: ABG BASE EXCESS -4.8 mmol/L (-2.0-2.0); ARTERIAL BLOOD GAS PH 7.282 (7.35-7.45)
[2020-03-21 15:26] LABS: ABG BASE EXCESS -2.7 mmol/L (-2.0-2.0); ARTERIAL BLOOD GAS PH 7.421 (7.35-7.45)
[2020-03-22] VITALS (12 sets, daily range): BP systolic 130–173; BP diastolic 57–86
[2020-03-22 06:30] LABS: HEMATOCRIT 34.2 % (37.0-47.0); MEAN CELL VOLUME 91.4 fl (81.0-99.0); MEAN CORPUSCULAR HGB 28.1 pg (27.0-31.0); MEAN CORPUSCULAR HGB CONC 30.7 g/dl (33.0-37.0); PLATELET COUNT AUTOMATED 383 10*3/uL (130-400); RED BLOOD COUNT 3.74 10*6/uL (4.10-5.10); RED CELL DISTRI WIDTH 16.5 % (0-14.5); WHITE BLOOD COUNT 15.9 10*3/uL (4.8-10.8)
[2020-03-22 06:43] LABS: ALKALINE PHOSPHATASE 76 U/L (45-117); BUN 26 mg/dl (7-24); CPK 74 U/L (26-192); CREATININE 0.75 mg/dL (0.55-1.02); LDH 399 U/L (84-246); SGOT/AST 20 IU/L (3-35); SGPT/ALT 23 U/L (12-78); TOTAL PROTEIN 6.1 gm/dL (6.4-8.2)
[2020-03-22 07:07] LABS: CHLORIDE 108 mmol/L (98-107); SODIUM 137 mmol/L (136-145)
[2020-03-22 07:09] LABS: POTASSIUM 5.8 mmol/L (3.5-5.1)
[2020-03-22 07:39] LABS: PLATELET SUFFICIENCY NORMAL (NORMAL); POLYCHROMASIA SLIGHT; TOTAL CELLS COUNTED 100 #CELLS
[2020-03-22 08:08] LABS: ABG BASE EXCESS -3.4 mmol/L (-2.0-2.0); ARTERIAL BLOOD GAS PH 7.264 (7.35-7.45)
[2020-03-22 11:13] LABS: BUN 27 mg/dl (7-24); CHLORIDE 107 mmol/L (98-107); CREATININE 0.84 mg/dL (0.55-1.02); POTASSIUM 5.3 mmol/L (3.5-5.1); SODIUM 136 mmol/L (136-145)
[2020-03-22 13:49] LABS: ABG BASE EXCESS -3.4 mmol/L (-2.0-2.0); ARTERIAL BLOOD GAS PH 7.25 (7.35-7.45)
[2020-03-22 17:21] LABS: ACT PARTIAL THROMBO TIME 25.4 SECONDS (20.0-32.1)
[2020-03-22 17:28] LABS: BUN 26 mg/dl (7-24); CHLORIDE 107 mmol/L (98-107); CREATININE 0.74 mg/dL (0.55-1.02); POTASSIUM 5.6 mmol/L (3.5-5.1); SODIUM 135 mmol/L (136-145)
[2020-03-22 21:19] LABS: BUN 26 mg/dl (7-24); CHLORIDE 104 mmol/L (98-107); CREATININE 0.83 mg/dL (0.55-1.02); SODIUM 136 mmol/L (136-145)
[2020-03-22 21:22] LABS: POTASSIUM 4.4 mmol/L (3.5-5.1)
[2020-03-23] VITALS (12 sets, daily range): BP systolic 96–145; BP diastolic 49–66
[2020-03-23 06:23] LABS: HEMATOCRIT 32.6 % (37.0-47.0); MEAN CELL VOLUME 92.6 fl (81.0-99.0); MEAN CORPUSCULAR HGB 28.1 pg (27.0-31.0); MEAN CORPUSCULAR HGB CONC 30.4 g/dl (33.0-37.0); MEAN PLATELET VOLUME 10.6 fl (9.6-12.3); PLATELET COUNT AUTOMATED 395 10*3/uL (130-400); RED BLOOD COUNT 3.52 10*6/uL (4.10-5.10); RED CELL DISTRI WIDTH 15.9 % (0-14.5); WHITE BLOOD COUNT 16.6 10*3/uL (4.8-10.8)
[2020-03-23 06:41] LABS: CHLORIDE 102 mmol/L (98-107); POTASSIUM 5.1 mmol/L (3.5-5.1); SODIUM 135 mmol/L (136-145)
[2020-03-23 06:53] LABS: ALBUMIN 1.9 gm/dl (3.1-4.5); ALKALINE PHOSPHATASE 70 U/L (45-117); BUN 30 mg/dl (7-24); CPK 60 U/L (26-192); CREATININE 0.81 mg/dL (0.55-1.02); LDH 283 U/L (84-246); SGOT/AST 18 IU/L (3-35); SGPT/ALT 19 U/L (12-78); TOTAL PROTEIN 6.1 gm/dL (6.4-8.2)
[2020-03-23 07:20] LABS: BASOPHILS 1 % (0-1); PLATELET SUFFICIENCY NORMAL (NORMAL); TOTAL CELLS COUNTED 100 #CELLS
[2020-03-23 07:21] LABS: POLYCHROMASIA SLIGHT
[2020-03-23 08:01] LABS: ARTERIAL BLOOD GAS PH 7.292 (7.35-7.45)
[2020-03-23 16:16] LABS: ABG BASE EXCESS 0.2 mmol/L (-2.0-2.0); ARTERIAL BLOOD GAS PH 7.366 (7.35-7.45)
[2020-03-23 16:53] LABS: BUN 39 mg/dl (7-24); CHLORIDE 107 mmol/L (98-107); POTASSIUM 4.8 mmol/L (3.5-5.1); SODIUM 137 mmol/L (136-145)
[2020-03-24] VITALS (12 sets, daily range): BP systolic 112–177; BP diastolic 56–75
[2020-03-24 06:10] LABS: ALBUMIN 1.7 gm/dl (3.1-4.5); ALKALINE PHOSPHATASE 67 U/L (45-117); BUN 37 mg/dl (7-24); CHLORIDE 103 mmol/L (98-107); CREATININE 0.83 mg/dL (0.55-1.02); LDH 287 U/L (84-246); POTASSIUM 4.1 mmol/L (3.5-5.1); SGOT/AST 33 IU/L (3-35); SGPT/ALT 24 U/L (12-78); SODIUM 133 mmol/L (136-145); TOTAL PROTEIN 5.7 gm/dL (6.4-8.2)
[2020-03-24 06:17] LABS: HEMATOCRIT 27.1 % (37.0-47.0); MEAN CELL VOLUME 90.3 fl (81.0-99.0); MEAN CORPUSCULAR HGB 29.3 pg (27.0-31.0); MEAN CORPUSCULAR HGB CONC 32.5 g/dl (33.0-37.0); MEAN PLATELET VOLUME 10.9 fl (9.6-12.3); NUCLEATED RED BLOOD CELL 0.1 % (0.0-0.0); PLATELET COUNT AUTOMATED 374 10*3/uL (130-400); RED CELL DISTRI WIDTH 16.4 % (0-14.5); WHITE BLOOD COUNT 17.1 10*3/uL (4.8-10.8)
[2020-03-24 07:29] LABS: BURR CELLS FEW; PLATELET SUFFICIENCY NORMAL (NORMAL); POLYCHROMASIA SLIGHT; ROULEAUX SLIGHT; TOTAL CELLS COUNTED 100 #CELLS
[2020-03-24 07:33] LABS: ABG BASE EXCESS -0.5 mmol/L (-2.0-2.0); ARTERIAL BLOOD GAS PH 7.477 (7.35-7.45)
[2020-03-24 14:11] LABS: ABG BASE EXCESS 0.1 mmol/L (-2.0-2.0); ARTERIAL BLOOD GAS PH 7.52 (7.35-7.45)
[2020-03-24 17:58] LABS: ABG BASE EXCESS -0.6 mmol/L (-2.0-2.0); ARTERIAL BLOOD GAS PH 7.5 (7.35-7.45)
[2020-03-25] VITALS (12 sets, daily range): BP systolic 113–156; BP diastolic 59–72
[2020-03-25 06:09] LABS: ALBUMIN 2.6 gm/dl (3.1-4.5); BUN 40 mg/dl (7-24); CHLORIDE 103 mmol/L (98-107); CREATININE 0.93 mg/dL (0.55-1.02); POTASSIUM 3.7 mmol/L (3.5-5.1); SGOT/AST 24 IU/L (3-35); SGPT/ALT 19 U/L (12-78); SODIUM 135 mmol/L (136-145); TOTAL PROTEIN 6.4 gm/dL (6.4-8.2)
[2020-03-25 06:12] LABS: ALKALINE PHOSPHATASE 67 U/L (45-117); LDH 276 U/L (84-246)
[2020-03-25 06:18] LABS: ACT PARTIAL THROMBO TIME 61.7 SECONDS (20.0-32.1)
[2020-03-25 06:46] LABS: HEMATOCRIT 23.9 % (37.0-47.0); MEAN CELL VOLUME 88.8 fl (81.0-99.0); MEAN CORPUSCULAR HGB 28.6 pg (27.0-31.0); MEAN CORPUSCULAR HGB CONC 32.2 g/dl (33.0-37.0); MEAN PLATELET VOLUME 10.4 fl (9.6-12.3); NUCLEATED RED BLOOD CELL 0.2 % (0.0-0.0); PLATELET COUNT AUTOMATED 373 10*3/uL (130-400); RED BLOOD COUNT 2.69 10*6/uL (4.10-5.10); RED CELL DISTRI WIDTH 16.8 % (0-14.5); WHITE BLOOD COUNT 16.9 10*3/uL (4.8-10.8)
[2020-03-25 08:18] LABS: BASOPHILS 1 % (0-1); PLATELET SUFFICIENCY NORMAL (NORMAL); POLYCHROMASIA SLIGHT; TOTAL CELLS COUNTED 100 #CELLS
[2020-03-25 08:23] LABS: ABG BASE EXCESS 1.2 mmol/L (-2.0-2.0); ARTERIAL BLOOD GAS PH 7.488 (7.35-7.45)
[2020-03-25 15:46] LABS: ABG BASE EXCESS 0.6 mmol/L (-2.0-2.0); ARTERIAL BLOOD GAS PH 7.508 (7.35-7.45)
[2020-03-26] VITALS (12 sets, daily range): BP systolic 123–143; BP diastolic 53–76
[2020-03-26 05:34] LABS: ALBUMIN 2.3 gm/dl (3.1-4.5); BUN 43 mg/dl (7-24); CHLORIDE 101 mmol/L (98-107); CREATININE 0.87 mg/dL (0.55-1.02); POTASSIUM 3.7 mmol/L (3.5-5.1); SGOT/AST 19 IU/L (3-35); SGPT/ALT 19 U/L (12-78); SODIUM 135 mmol/L (136-145)
[2020-03-26 05:38] LABS: ALKALINE PHOSPHATASE 76 U/L (45-117); CPK 151 U/L (26-192); LDH 346 U/L (84-246); TOTAL PROTEIN 6.1 gm/dL (6.4-8.2)
[2020-03-26 06:20] LABS: HEMATOCRIT 23.4 % (37.0-47.0); MEAN CELL VOLUME 88.6 fl (81.0-99.0); MEAN CORPUSCULAR HGB CONC 31.6 g/dl (33.0-37.0); MEAN PLATELET VOLUME 10.3 fl (9.6-12.3); NUCLEATED RED BLOOD CELL 0.1 10*3/uL (0.0-0.0); NUCLEATED RED BLOOD CELL 0.7 % (0.0-0.0); PLATELET COUNT AUTOMATED 362 10*3/uL (130-400); RED BLOOD COUNT 2.64 10*6/uL (4.10-5.10); RED CELL DISTRI WIDTH 16.9 % (0-14.5); WHITE BLOOD COUNT 15.2 10*3/uL (4.8-10.8)
[2020-03-26 07:01] LABS: PLATELET SUFFICIENCY NORMAL (NORMAL); POLYCHROMASIA SLIGHT; TOTAL CELLS COUNTED 100 #CELLS
[2020-03-26 09:08] LABS: ABG BASE EXCESS 0.3 mmol/L (-2.0-2.0); ARTERIAL BLOOD GAS PH 7.5 (7.35-7.45)
[2020-03-26 21:29] LABS: ARTERIAL BLOOD GAS PCO2 30 mmHg (35-45); ARTERIAL BLOOD GAS PH 7.511 (7.35-7.45); ARTERIAL BLOOD GAS PO2 66 mmHg (80-90)
[2020-03-26 21:30] LABS: ABG BASE EXCESS 1.5 mmol/L (-2.0-2.0); ABG O2 SATURATION 2 % (95-97)
[2020-03-26 21:47] LABS: ABG BASE EXCESS 1.5 mmol/L (-2.0-2.0); ARTERIAL BLOOD GAS PH 7.524 (7.35-7.45)
[2020-03-27] VITALS (7 sets, daily range): BP systolic 98–151; BP diastolic 47–69
[2020-03-27 05:48] LABS: ALBUMIN 1.9 gm/dl (3.1-4.5); BUN 36 mg/dl (7-24); CHLORIDE 106 mmol/L (98-107); CREATININE 0.71 mg/dL (0.55-1.02); LDH 274 U/L (84-246); POTASSIUM 3.8 mmol/L (3.5-5.1); SGOT/AST 16 IU/L (3-35); SGPT/ALT 16 U/L (12-78); SODIUM 140 mmol/L (136-145); TOTAL PROTEIN 5.7 gm/dL (6.4-8.2)
[2020-03-27 05:49] LABS: ALKALINE PHOSPHATASE 60 U/L (45-117); CPK 144 U/L (26-192)
[2020-03-27 06:15] LABS: MEAN CELL VOLUME 89.5 fl (81.0-99.0); MEAN CORPUSCULAR HGB 27.2 pg (27.0-31.0); MEAN CORPUSCULAR HGB CONC 30.4 g/dl (33.0-37.0); NUCLEATED RED BLOOD CELL 0.1 10*3/uL (0.0-0.0); NUCLEATED RED BLOOD CELL 0.4 % (0.0-0.0); PLATELET COUNT AUTOMATED 341 10*3/uL (130-400); RED BLOOD COUNT 2.57 10*6/uL (4.10-5.10); RED CELL DISTRI WIDTH 17.2 % (0-14.5); WHITE BLOOD COUNT 13.5 10*3/uL (4.8-10.8)
[2020-03-27 06:56] LABS: PLATELET SUFFICIENCY NORMAL (NORMAL); POLYCHROMASIA SLIGHT; ROULEAUX SLIGHT; TOTAL CELLS COUNTED 100 #CELLS
[2020-03-27 10:28] LABS: ABG BASE EXCESS 0.5 mmol/L (-2.0-2.0); ARTERIAL BLOOD GAS PH 7.483 (7.35-7.45)
[2020-03-27 13:36] LABS: HEMATOCRIT 23.2 % (37.0-47.0); MEAN CELL VOLUME 89.9 fl (81.0-99.0); MEAN CORPUSCULAR HGB 27.9 pg (27.0-31.0); MEAN PLATELET VOLUME 9.8 fl (9.6-12.3); NUCLEATED RED BLOOD CELL 0.2 % (0.0-0.0); PLATELET COUNT AUTOMATED 333 10*3/uL (130-400); RED BLOOD COUNT 2.58 10*6/uL (4.10-5.10); RED CELL DISTRI WIDTH 17.3 % (0-14.5); WHITE BLOOD COUNT 12.3 10*3/uL (4.8-10.8)
[2020-03-27 13:53] LABS: PLATELET SUFFICIENCY NORMAL (NORMAL); POLYCHROMASIA SLIGHT; TOTAL CELLS COUNTED 100 #CELLS
[2020-03-28] VITALS: BP 121/71
[2020-03-28 04:00] VITALS: BP 134/68
[2020-03-28 06:04] LABS: ALKALINE PHOSPHATASE 81 U/L (45-117); BUN 30 mg/dl (7-24); CHLORIDE 107 mmol/L (98-107); CREATININE 0.74 mg/dL (0.55-1.02); LDH 359 U/L (84-246); POTASSIUM 4.1 mmol/L (3.5-5.1); SGOT/AST 17 IU/L (3-35); SGPT/ALT 17 U/L (12-78); SODIUM 139 mmol/L (136-145); TOTAL PROTEIN 6.2 gm/dL (6.4-8.2)
[2020-03-28 06:11] LABS: CPK 88 U/L (26-192)
[2020-03-28 06:39] LABS: HEMATOCRIT 24.4 % (37.0-47.0); MEAN CELL VOLUME 92.8 fl (81.0-99.0); MEAN CORPUSCULAR HGB 27.8 pg (27.0-31.0); MEAN CORPUSCULAR HGB CONC 29.9 g/dl (33.0-37.0); PLATELET COUNT AUTOMATED 332 10*3/uL (130-400); RED BLOOD COUNT 2.63 10*6/uL (4.10-5.10); RED CELL DISTRI WIDTH 17.4 % (0-14.5); WHITE BLOOD COUNT 12.2 10*3/uL (4.8-10.8)
[2020-03-28 07:59] LABS: ABG BASE EXCESS 1.5 mmol/L (-2.0-2.0); ARTERIAL BLOOD GAS PH 7.503 (7.35-7.45)
[2020-03-28 08:00] VITALS: BP 119/62; BP 152/74
[2020-03-28 08:22] LABS: TOTAL CELLS COUNTED 100 #CELLS
[2020-03-28 08:23] LABS: PLATELET SUFFICIENCY NORMAL (NORMAL); POLYCHROMASIA SLIGHT; TARGET CELLS FEW
[2020-03-28 12:00] VITALS: BP 134/64; BP 140/67
[2020-03-28 14:49] LABS: ABG BASE EXCESS 2.5 mmol/L (-2.0-2.0); ARTERIAL BLOOD GAS PH 7.49 (7.35-7.45)
[2020-03-28 16:00] VITALS: BP 126/60
[2020-03-28 20:00] VITALS: BP 133/63
[2020-03-29] VITALS: BP 122/62
[2020-03-29 04:00] VITALS: BP 122/58
[2020-03-29 05:58] LABS: ALBUMIN 1.9 gm/dl (3.1-4.5); ALKALINE PHOSPHATASE 70 U/L (45-117); BUN 24 mg/dl (7-24); CHLORIDE 111 mmol/L (98-107); POTASSIUM 3.9 mmol/L (3.5-5.1); SGOT/AST 13 IU/L (3-35); SGPT/ALT 16 U/L (12-78); SODIUM 143 mmol/L (136-145); TOTAL PROTEIN 5.9 gm/dL (6.4-8.2)
[2020-03-29 06:20] LABS: MEAN CELL VOLUME 93.4 fl (81.0-99.0); MEAN PLATELET VOLUME 9.6 fl (9.6-12.3); PLATELET COUNT AUTOMATED 320 10*3/uL (130-400); RED BLOOD COUNT 2.57 10*6/uL (4.10-5.10); RED CELL DISTRI WIDTH 17.5 % (0-14.5); WHITE BLOOD COUNT 10.4 10*3/uL (4.8-10.8)
[2020-03-29 07:10] LABS: PLATELET SUFFICIENCY NORMAL (NORMAL); POLYCHROMASIA SLIGHT; TOTAL CELLS COUNTED 100 #CELLS
[2020-03-29 07:11] LABS: ROULEAUX SLIGHT
[2020-03-29 07:35] LABS: ABG BASE EXCESS 1.9 mmol/L (-2.0-2.0); ARTERIAL BLOOD GAS PH 7.48 (7.35-7.45)
[2020-03-29 08:00] VITALS: BP 121/54
[2020-03-29 12:00] VITALS: BP 125/58
[2020-03-29 14:02] LABS: ABG BASE EXCESS 1.6 mmol/L (-2.0-2.0); ARTERIAL BLOOD GAS PH 7.459 (7.35-7.45)
[2020-03-29 16:00] VITALS: BP 124/60
[2020-03-29 20:00] VITALS: BP 130/61
[2020-03-29 20:15] LABS: ABG BASE EXCESS 4.1 mmol/L (-2.0-2.0); ARTERIAL BLOOD GAS PH 7.505 (7.35-7.45)
[2020-03-30] VITALS: BP 121/55
[2020-03-30 04:00] VITALS: BP 114/53
[2020-03-30 06:03] LABS: ALBUMIN 2.4 gm/dl (3.1-4.5); ALKALINE PHOSPHATASE 64 U/L (45-117); BUN 27 mg/dl (7-24); CHLORIDE 108 mmol/L (98-107); POTASSIUM 3.8 mmol/L (3.5-5.1); SGOT/AST 11 IU/L (3-35); SGPT/ALT 16 U/L (12-78); SODIUM 141 mmol/L (136-145); TOTAL PROTEIN 6.5 gm/dL (6.4-8.2)
[2020-03-30 06:09] LABS: HEMATOCRIT 24.7 % (37.0-47.0); MEAN CELL VOLUME 93.6 fl (81.0-99.0); MEAN CORPUSCULAR HGB 27.7 pg (27.0-31.0); MEAN CORPUSCULAR HGB CONC 29.6 g/dl (33.0-37.0); MEAN PLATELET VOLUME 9.3 fl (9.6-12.3); NUCLEATED RED BLOOD CELL 0.2 % (0.0-0.0); PLATELET COUNT AUTOMATED 317 10*3/uL (130-400); RED BLOOD COUNT 2.64 10*6/uL (4.10-5.10); RED CELL DISTRI WIDTH 17.4 % (0-14.5); WHITE BLOOD COUNT 10.9 10*3/uL (4.8-10.8)
[2020-03-30 07:23] LABS: BASOPHILS 1 % (0-1); PLATELET SUFFICIENCY NORMAL (NORMAL); POLYCHROMASIA SLIGHT; TOTAL CELLS COUNTED 100 #CELLS
[2020-03-30 08:00] VITALS: BP 114/59
[2020-03-30 08:05] LABS: ABG BASE EXCESS 2.6 mmol/L (-2.0-2.0); ARTERIAL BLOOD GAS PH 7.508 (7.35-7.45)
[2020-03-30 12:00] VITALS: BP 121/62
[2020-03-30 16:00] VITALS: BP 133/59
[2020-03-30 20:00] VITALS: BP 133/65
[2020-03-31] VITALS: BP 126/56
[2020-03-31 04:00] VITALS: BP 128/58
[2020-03-31 06:28] LABS: HEMATOCRIT 23.7 % (37.0-47.0); MEAN CELL VOLUME 92.9 fl (81.0-99.0); MEAN CORPUSCULAR HGB 28.2 pg (27.0-31.0); MEAN CORPUSCULAR HGB CONC 30.4 g/dl (33.0-37.0); MEAN PLATELET VOLUME 9.4 fl (9.6-12.3); PLATELET COUNT AUTOMATED 294 10*3/uL (130-400); RED BLOOD COUNT 2.55 10*6/uL (4.10-5.10); RED CELL DISTRI WIDTH 17.3 % (0-14.5); WHITE BLOOD COUNT 10.1 10*3/uL (4.8-10.8)
[2020-03-31 06:55] LABS: BUN 30 mg/dl (7-24); CHLORIDE 104 mmol/L (98-107); POTASSIUM 3.6 mmol/L (3.5-5.1); SODIUM 138 mmol/L (136-145)
[2020-03-31 07:00] LABS: ALKALINE PHOSPHATASE 64 U/L (45-117); CREATININE 0.75 mg/dL (0.55-1.02); SGOT/AST 13 IU/L (3-35); SGPT/ALT 15 U/L (12-78); TOTAL PROTEIN 6.7 gm/dL (6.4-8.2)
[2020-03-31 07:53] LABS: ABG BASE EXCESS 4.4 mmol/L (-2.0-2.0); ARTERIAL BLOOD GAS PH 7.488 (7.35-7.45)
[2020-03-31 08:00] VITALS: BP 126/60
[2020-03-31 08:07] LABS: BASOPHILS 1 % (0-1); PLATELET SUFFICIENCY NORMAL (NORMAL); POLYCHROMASIA SLIGHT; TOTAL CELLS COUNTED 100 #CELLS
[2020-03-31 10:40] LABS: ABG BASE EXCESS 4.8 mmol/L (-2.0-2.0); ARTERIAL BLOOD GAS PH 7.495 (7.35-7.45)
[2020-03-31 12:00] VITALS: BP 122/52
[2020-03-31 16:00] VITALS: BP 115/55
[2020-03-31 20:00] VITALS: BP 118/56
[2020-04-01] VITALS: BP 128/61
[2020-04-01 04:00] VITALS: BP 131/61
[2020-04-01 06:36] LABS: HEMATOCRIT 26.4 % (37.0-47.0); MEAN CELL VOLUME 92.3 fl (81.0-99.0); MEAN CORPUSCULAR HGB 27.3 pg (27.0-31.0); MEAN CORPUSCULAR HGB CONC 29.5 g/dl (33.0-37.0); MEAN PLATELET VOLUME 9.1 fl (9.6-12.3); PLATELET COUNT AUTOMATED 333 10*3/uL (130-400); RED BLOOD COUNT 2.86 10*6/uL (4.10-5.10); RED CELL DISTRI WIDTH 17.4 % (0-14.5); WHITE BLOOD COUNT 10.3 10*3/uL (4.8-10.8)
[2020-04-01 06:58] LABS: ALBUMIN 2.8 gm/dl (3.1-4.5); BUN 28 mg/dl (7-24); CHLORIDE 105 mmol/L (98-107); POTASSIUM 3.8 mmol/L (3.5-5.1); SGOT/AST 15 IU/L (3-35); SGPT/ALT 19 U/L (12-78); SODIUM 140 mmol/L (136-145)
[2020-04-01 07:01] LABS: ALKALINE PHOSPHATASE 72 U/L (45-117); TOTAL PROTEIN 6.8 gm/dL (6.4-8.2)
[2020-04-01 07:03] LABS: ATYPICAL LYMPHS 1 % (0-0); PLATELET SUFFICIENCY NORMAL (NORMAL); POLYCHROMASIA SLIGHT; TOTAL CELLS COUNTED 100 #CELLS
[2020-04-01 08:00] VITALS: BP 128/62
[2020-04-01 08:39] LABS: ABG BASE EXCESS 3.5 mmol/L (-2.0-2.0); ARTERIAL BLOOD GAS PH 7.505 (7.35-7.45)
[2020-04-01 12:00] VITALS: BP 136/64
[2020-04-01 16:00] VITALS: BP 135/68
[2020-04-01 20:00] VITALS: BP 107/31
[2020-04-02] VITALS: BP 108/47
[2020-04-02 04:00] VITALS: BP 109/41
[2020-04-02 06:08] LABS: ALBUMIN 2.8 gm/dl (3.1-4.5); BUN 28 mg/dl (7-24); CHLORIDE 105 mmol/L (98-107); POTASSIUM 3.6 mmol/L (3.5-5.1); SODIUM 140 mmol/L (136-145)
[2020-04-02 06:11] LABS: HEMATOCRIT 27.2 % (37.0-47.0); MEAN CELL VOLUME 94.4 fl (81.0-99.0); MEAN CORPUSCULAR HGB 28.1 pg (27.0-31.0); MEAN CORPUSCULAR HGB CONC 29.8 g/dl (33.0-37.0); MEAN PLATELET VOLUME 9.4 fl (9.6-12.3); NUCLEATED RED BLOOD CELL 0.2 % (0.0-0.0); PLATELET COUNT AUTOMATED 348 10*3/uL (130-400); RED BLOOD COUNT 2.88 10*6/uL (4.10-5.10); RED CELL DISTRI WIDTH 17.6 % (0-14.5); WHITE BLOOD COUNT 11.1 10*3/uL (4.8-10.8)
[2020-04-02 06:12] LABS: ALKALINE PHOSPHATASE 72 U/L (45-117); CREATININE 0.74 mg/dL (0.55-1.02); SGOT/AST 11 IU/L (3-35); SGPT/ALT 16 U/L (12-78); TOTAL PROTEIN 7.1 gm/dL (6.4-8.2)
[2020-04-02 06:40] LABS: PLATELET SUFFICIENCY NORMAL (NORMAL); POLYCHROMASIA SLIGHT; TOTAL CELLS COUNTED 100 #CELLS
[2020-04-02 08:00] VITALS: BP 117/56
[2020-04-02 08:39] LABS: ABG BASE EXCESS 2.8 mmol/L (-2.0-2.0); ARTERIAL BLOOD GAS PH 7.461 (7.35-7.45)
[2020-04-02 12:00] VITALS: BP 114/65
[2020-04-02 16:00] VITALS: BP 116/50
[2020-04-02 20:00] VITALS: BP 104/46
[2020-04-03] VITALS: BP 114/52
[2020-04-03 04:00] VITALS: BP 113/58
[2020-04-03 06:10] LABS: ALBUMIN 2.6 gm/dl (3.1-4.5); ALKALINE PHOSPHATASE 78 U/L (45-117); BUN 28 mg/dl (7-24); CHLORIDE 104 mmol/L (98-107); CREATININE 0.73 mg/dL (0.55-1.02); POTASSIUM 3.7 mmol/L (3.5-5.1); SGOT/AST 11 IU/L (3-35); SGPT/ALT 16 U/L (12-78); SODIUM 138 mmol/L (136-145); TOTAL PROTEIN 6.7 gm/dL (6.4-8.2)
[2020-04-03 06:26] LABS: HEMATOCRIT 26.1 % (37.0-47.0); MEAN CELL VOLUME 93.2 fl (81.0-99.0); MEAN CORPUSCULAR HGB 27.5 pg (27.0-31.0); MEAN CORPUSCULAR HGB CONC 29.5 g/dl (33.0-37.0); MEAN PLATELET VOLUME 9.6 fl (9.6-12.3); PLATELET COUNT AUTOMATED 375 10*3/uL (130-400); RED CELL DISTRI WIDTH 17.6 % (0-14.5)
[2020-04-03 07:14] LABS: BASOPHILS 2 % (0-1); PLATELET SUFFICIENCY NORMAL (NORMAL); POLYCHROMASIA SLIGHT; TOTAL CELLS COUNTED 100 #CELLS
[2020-04-03 08:00] VITALS: BP 122/60
[2020-04-03 12:00] VITALS: BP 92/44; BP 95/24
[2020-04-03 16:00] VITALS: BP 124/65
[2020-04-03 20:00] VITALS: BP 121/59
[2020-04-04] VITALS: BP 118/52
[2020-04-04 04:00] VITALS: BP 111/63
[2020-04-04 08:00] VITALS: BP 120/65
[2020-04-04 12:00] VITALS: BP 112/58
[2020-04-04 16:00] VITALS: BP 128/74
[2020-04-04 20:00] VITALS: BP 119/67
[2020-04-05] VITALS: BP 117/58
[2020-04-05 04:00] VITALS: BP 104/50
[2020-04-05 08:00] VITALS: BP 101/54
[2020-04-05] MEDS ORDERED: ALLOPURINOL100 MG PEG (10:59)
[2020-04-05] MEDS ORDERED: CETIRIZINE HYDR10 MG PEG (10:59)
[2020-04-05] MEDS ORDERED: VENLAFAXINE HYD75 MG PEG (10:59)
[2020-04-05] MEDS ORDERED: BETHANECHOL CHL10 MG PEG (10:59)
[2020-04-05] MEDS ORDERED: LOPRESSOR25 MG PEG (10:59)
[2020-04-05] MEDS ORDERED: GABAPENTIN800 MG PEG (10:59)
[2020-04-05] MEDS ORDERED: ASPIRIN81 M1 PEG (10:59)
[2020-04-05] MEDS ORDERED: DOK COLACE100 MG PEG (10:59)
[2020-04-05] MEDS ORDERED: MONTELUKAST SOD10 MG PEG (10:59)
[2020-04-05 12:00] VITALS: BP 103/82
[2020-04-28 11:07] LABS: ACID FAST CULTURE Negative (.)
== END 2020-04-05 14:00 | disposition other institution (70) | DRG 4 ==
LOC: ED 16:35 → EDHOLD 18:38 → ICCU 18:38
PROVIDERS: Emergency Medicine; Hospitalist; Internal Medicine; Internal Medicine Critical Care Medicine; Social Worker Clinical; Student in an Organized Health Care Education/Training Program; Surgery; ADMIT Student in an Organized Health Care Education/Training Program; ATTEND Student in an Organized Health Care Education/Training Program
PROC: 03HB33Z Insertion of Infusion Device into Right Radial Artery, Percutaneous Approach (ICD-10-PCS; 2020-03-08)
PROC: B34HZZZ Ultrasonography of Right Upper Extremity Arteries (ICD-10-PCS; 2020-03-08)
PROC: 02HV33Z Insertion of Infusion Device into Superior Vena Cava, Percutaneous Approach (ICD-10-PCS; 2020-03-08)
PROC: B548ZZA Ultrasonography of Superior Vena Cava, Guidance (ICD-10-PCS; 2020-03-08)
PROC: 5A1955Z Respiratory Ventilation, Greater than 96 Consecutive Hours (ICD-10-PCS; 2020-03-09)
PROC: 0BH17EZ Insertion of Endotracheal Airway into Trachea, Via Natural or Artificial Opening (ICD-10-PCS; 2020-03-09)
PROC: 03HC33Z Insertion of Infusion Device into Left Radial Artery, Percutaneous Approach (ICD-10-PCS; 2020-03-09)
PROC: B34JZZZ Ultrasonography of Left Upper Extremity Arteries (ICD-10-PCS; 2020-03-09)
PROC: XW033E5 Introduction of Remdesivir Anti-infective into Peripheral Vein, Percutaneous Approach, New Technology Group 5 (ICD-10-PCS; 2020-03-10)
PROC: 0B928ZZ Drainage of Carina, Via Natural or Artificial Opening Endoscopic (ICD-10-PCS; 2020-03-15)
PROC: 0B948ZZ Drainage of Right Upper Lobe Bronchus, Via Natural or Artificial Opening Endoscopic (ICD-10-PCS; 2020-03-15)
PROC: 0B988ZZ Drainage of Left Upper Lobe Bronchus, Via Natural or Artificial Opening Endoscopic (ICD-10-PCS; 2020-03-15)
PROC: 0B918ZZ Drainage of Trachea, Via Natural or Artificial Opening Endoscopic (ICD-10-PCS; 2020-03-15)
PROC: 0B958ZZ Drainage of Right Middle Lobe Bronchus, Via Natural or Artificial Opening Endoscopic (ICD-10-PCS; 2020-03-15)
PROC: 0B938ZZ Drainage of Right Main Bronchus, Via Natural or Artificial Opening Endoscopic (ICD-10-PCS; 2020-03-15)
PROC: 0B978ZZ Drainage of Left Main Bronchus, Via Natural or Artificial Opening Endoscopic (ICD-10-PCS; 2020-03-15)
PROC: 0B968ZZ Drainage of Right Lower Lobe Bronchus, Via Natural or Artificial Opening Endoscopic (ICD-10-PCS; 2020-03-15)
PROC: 0B9B8ZZ Drainage of Left Lower Lobe Bronchus, Via Natural or Artificial Opening Endoscopic (ICD-10-PCS; 2020-03-15)
PROC: 0B998ZZ Drainage of Lingula Bronchus, Via Natural or Artificial Opening Endoscopic (ICD-10-PCS; 2020-03-15)
PROC: 0B21XEZ Change Endotracheal Airway in Trachea, External Approach (ICD-10-PCS; 2020-03-16)
PROC: 0W9930Z Drainage of Right Pleural Cavity with Drainage Device, Percutaneous Approach (ICD-10-PCS; 2020-03-17)
PROC: 03H833Z Insertion of Infusion Device into Left Brachial Artery, Percutaneous Approach (ICD-10-PCS; 2020-03-21)
PROC: B34JZZZ Ultrasonography of Left Upper Extremity Arteries (ICD-10-PCS; 2020-03-21)
PROC: 0B113F4 Bypass Trachea to Cutaneous with Tracheostomy Device, Percutaneous Approach (ICD-10-PCS; principal; 2020-03-27)
PROC: 0DH63UZ Insertion of Feeding Device into Stomach, Percutaneous Approach (ICD-10-PCS; 2020-03-27)
PROC: 0BJ08ZZ Inspection of Tracheobronchial Tree, Via Natural or Artificial Opening Endoscopic (ICD-10-PCS; 2020-03-27)
PROC: 5A09357 Assistance with Respiratory Ventilation, Less than 24 Consecutive Hours, Continuous Positive Airway Pressure (ICD-10-PCS; 2020-03-28)
PROC: 5A1935Z Respiratory Ventilation, Less than 24 Consecutive Hours (ICD-10-PCS; 2020-03-29)
PROC: 5A09357 Assistance with Respiratory Ventilation, Less than 24 Consecutive Hours, Continuous Positive Airway Pressure (ICD-10-PCS; 2020-03-31)
PROC: 5A1935Z Respiratory Ventilation, Less than 24 Consecutive Hours (ICD-10-PCS; 2020-03-31)
PROC: 0B21XFZ Change Tracheostomy Device in Trachea, External Approach (ICD-10-PCS; 2020-04-04)
DX: A41.9 Sepsis, unspecified organism (principal); R65.21 Severe sepsis with septic shock; U07.1 COVID-19; E43 Unspecified severe protein-calorie malnutrition; N17.0 Acute kidney failure with tubular necrosis; J12.82 Pneumonia due to coronavirus disease 2019; J80 Acute respiratory distress syndrome; E87.2 Acidosis; J95.851 Ventilator associated pneumonia; J93.9 Pneumothorax, unspecified; B37.89 Other sites of candidiasis; Z68.42 Body mass index [BMI] 45.0-49.9, adult; D68.59 Other primary thrombophilia; Z16.12 Extended spectrum beta lactamase (ESBL) resistance; N39.0 Urinary tract infection, site not specified; Z79.899 Other long term (current) drug therapy; E87.8 Other disorders of electrolyte and fluid balance, not elsewhere classified; E03.9 Hypothyroidism, unspecified; M81.0 Age-related osteoporosis without current pathological fracture; K21.9 Gastro-esophageal reflux disease without esophagitis; K57.90 Diverticulosis of intestine, part unspecified, without perforation or abscess without bleeding; E11.65 Type 2 diabetes mellitus with hyperglycemia; N18.32 Chronic kidney disease, stage 3b; I95.9 Hypotension, unspecified; E83.41 Hypermagnesemia; M19.90 Unspecified osteoarthritis, unspecified site; F41.9 Anxiety disorder, unspecified; B96.4 Proteus (mirabilis) (morganii) as the cause of diseases classified elsewhere; G47.33 Obstructive sleep apnea (adult) (pediatric); Z96.653 Presence of artificial knee joint, bilateral; E83.39 Other disorders of phosphorus metabolism; D64.9 Anemia, unspecified; E11.22 Type 2 diabetes mellitus with diabetic chronic kidney disease; E78.00 Pure hypercholesterolemia, unspecified; E66.9 Obesity, unspecified; R13.12 Dysphagia, oropharyngeal phase; E87.5 Hyperkalemia; K58.9 Irritable bowel syndrome, unspecified; Z93.0 Tracheostomy status; Z93.1 Gastrostomy status; Z88.2 Allergy status to sulfonamides; Z88.1 Allergy status to other antibiotic agents; Z88.8 Allergy status to other drugs, medicaments and biological substances; Z90.710 Acquired absence of both cervix and uterus; Z82.49 Family history of ischemic heart disease and other diseases of the circulatory system; Z79.82 Long term (current) use of aspirin